=== PATIENT | male | born 1970 | race Caucasian/White ===

== ENCOUNTER 2016-10-11 04:21 | Emergency (ER) | payer MEDICARE, MEDICAID ==
[~2016-10-11 04:21] MED LIST: /QUIN20TA; ABIL15TA PO; BUDE150T; DEPA500T2 OR; DEPA500T2 PO; TRAZ50TA2 PO; ZOLO50TA PO
--- NOTE | 2016-10-11 05:00 | REPUSA ---
CLINICAL HISTORY: Head trauma. TECHNIQUE: Multiple axial brain CT scan sections were obtained from base to vertex without contrast a dministration. COMMENTS: There is no evidence of skull fracture. The study shows normal configuration of sella turcica. There are no intra or extra-axial collections. There is no mass effect or midline shift. There is no evidence of hematoma formation. No hydrocephal us is present. No abnormal calcifications are noted. No significant abnormalities are seen either in the posterior fossa or supratentorial compartment. Mild chronic mucosal inflammatory changes of the ethmoid air cells. The remaining sinuses and mastoid air cells are patent. IMPRESSION: No evidence of acute intracranial pathology. No intracranial hemorrhage or skull fracture. Chronic ethmoid sinusitis. Thank you for your kind referral of this patient.
[2016-10-11] MEDS ORDERED: MECLIZINE 12.5 MG TAB As Ordered ONE (05:05)
--- NOTE | 2016-10-11 05:25 | EDDOCDS ---
Nurse's Notes [facility] Name: Carlitos Mosley Age: 45 yrs Sex: Male : 1970 Arrival Date: 10/11/2016 Time: 04:21 Bed 11 Private MD: Diagnosis: Labyrinthitis;Acute ethmoidal sinusitis, unspecified Presentation: 10/11 04:24 Presenting complaint: Patient states: a week and a half ago he slipped and fell on the nn1 ice and hit head on concrete. Reports he has been having dizzy spells since fall when getting out of bed. Adult Sepsis Screening: The patient does not have new or worsening altered mentation. Patient's respiratory rate is less than 22. Systolic blood pressure is greater than 100. Patient has a qSOFA score of 0- Negative Sepsis Screen. Suicide/Homicide risk assessment- the patient denies having any suicidal and/or homicidal ideations and does not present with any other emotional, behavioral or mental health complaints. Status: Patient is not a clinical services assistant or dependent. Transition of care: patient was not received from another setting of care. 04:24 Acuity: WAYNE Level 4 nn1 04:24 Method Of Arrival: Walkin/Carried/Asstd nn1 Triage Assessment: 04:28 General: Appears in no apparent distress, comfortable. General: Patient reports falling nn1 forward today on knees. States dizziness is worse when going from lying to sitting position. No headache at this time. . Pain: Location: right knee and left knee Pain currently is 7 out of 10 on a pain scale. HIV screening NA for this visit Offered previously. The patient is triaged at the bedside. See Assessment in Nurses Notes section of ED record. Neurological: Level of Consciousness is awake, alert, obeys commands. Respiratory: Airway is patent Respiratory effort is even, unlabored, Respiratory pattern is regular, symmetrical. Derm: Skin is diaphoretic, Skin is normal. Historical: - Allergies: SHELLFISH; Bees; - Home Meds: 1. Vitamin D Oral 50,000 unit - PMHx: Depression; - PSHx: HERNIA REPAIR; left knee surgery; Testicle torsion repair; - Social history: Smoking status: Patient states was never smoker of tobacco. No barriers to communication noted, The patient speaks fluent Yoruba, Speaks appropriately for age. - Family history: Not pertinent. - : The pt / caregiver states he / she is not on anticoagulants. Home medication list is obtained from the patient. - Exposure Risk Screening:: None identified. Screenin:51 Screening information is obtained from the patient. Fall risk: No risks identified. af2 Assistance ADL's: requires no assistance with activities of daily living. Abuse/DV Screen: The patient / caregiver reports he/she is: not in a situation that causes fear, pain or injury. Nutritional screening: No deficits noted. Advance Directives: Currently, there is no health care proxy. home support is adequate. Assessment: 04:52 General: Appears in no apparent distress, Behavior is cooperative. Neurological: Level af2 of Consciousness is awake, alert, obeys commands, Oriented to person, place, time, Reports dizziness. Respiratory: Airway is patent Respiratory effort is even, unlabored. Derm: Skin is normal. Vital Signs: 04:27 BP 159 / 100; Pulse 84; Resp 18; Temp 96.9(T); Pulse Ox 96% on R/A; Weight 125.19 kg; nn1 Height 5 ft. 11 in. (180.34 cm); Pain 6/10; 04:27 Body Mass Index 38.49 (125.19 kg, 180.34 cm) nn1 Vitals: 05:17 Log In Time: October 11, 2016 at 04:21. af2 ED Course: 04:22 Patient visited by Alexandria Phelps. gjb 04:22 Patient moved to Waiting gjb 04:25 Triage Initiated nn1 04:30 Lluvia ByrneRN is Primary Nurse. nn1 04:30 Patient moved to 11 nn1 04:38 Sherif Gong DO is Attending Physician. cs11 04:38 Patient visited by Sherif Gong DO. cs11 04:51 The patient / caregiver is instructed regarding the plan of care and ED course. Patient af2 has correct armband on for positive identification. Placed in gown. 04:51 No IV's were initiated during this patient's visit. No procedures done that require af2 assistance. 04:52 Patient visited by Lluvia Byrne RN. af2 05:07 CT Head Without Contrast Returned. EDMS Administered Medications: 05:16 Drug: Meclizine 50 mg [meclizine 12.5 mg tablet (4 tabs)] Route: PO; af2 Order Results: Radiology Order: CT Head Without Contrast Test: CT Head Without Contrast REASON FOR EXAMINATION: Trauma; ; CLINICAL HISTORY: Head trauma.; TECHNIQUE: Multiple axial brain CT scan sections were obtained from base to vertex without contrast a; dministration.; COMMENTS:; There is no evidence of skull fracture.; The study shows normal configuration of sella turcica. There are no intra or extra-axial collections.; There is no mass effect or midline shift. There is no evidence of hematoma formation. No hydrocephal; us is present. No abnormal calcifications are noted.; No significant abnormalities are seen either in the posterior fossa or supratentorial compartment.; Mild chronic mucosal inflammatory changes of the ethmoid air cells.; The remaining sinuses and mastoid air cells are patent.; IMPRESSION:; No evidence of acute intracranial pathology. No intracranial hemorrhage or skull fracture.; Chronic ethmoid sinusitis.; Thank you for your kind referral of this patient.; ; Outcome: 05:08 Discharge ordered by Provider. cs11 05:16 Discharge Assessment: Patient awake, alert and oriented x 3. No cognitive and/or af2 functional deficits noted. Patient verbalized understanding of disposition instructions. patient administered narcotics - no. The following High Risk Discharge criteria are identified: None. Discharged to home ambulatory. Condition: stable. Discharge instructions given to patient, Instructed on discharge instructions, follow up and referral plans. Demonstrated understanding of instructions, Pt was receptive of discharge instructions/ teaching. CT Study completed. Property :Personal belongings accompany Pt. 05:24 Patient left the ED. af2 Signatures: Dispatcher [employer] EDMS Sherif Gong DO DO cs11 Lluvia Byrne,RN RN af2 Blanca GradyRN RN nn1 Alexandria Phelps JONI
--- NOTE | 2016-10-11 05:25 | EDDOCDS ---
Physician Documentation [facility] Name: Carlitos Mosley Age: 45 yrs Sex: Male : 1970 Arrival Date: 10/11/2016 Time: 04:21 Bed 11 Private MD: Disposition: 10/11/16 05:08 Discharged to Home/Self Care. Impression: Labyrinthitis, Acute ethmoidal sinusitis, unspecified. - Condition is Stable. - Prescriptions for Meclizine 25 mg Oral Tablet - take 1 tablet by ORAL route every 8 hours As needed; 30 tablet. Prednisone 20 mg Oral Tablet - take 2 tablet by ORAL route once daily for 5 days; 10 tablet. - Medication Reconciliation, Local Pharmacy Hours form. - Follow up: Private Physician; When: Call to arrange an appointment; Reason: Recheck today's complaints. - Problem is new. - Symptoms have improved. Historical: - Allergies: SHELLFISH; Bees; - Home Meds: 1. Vitamin D Oral 50,000 unit - PMHx: Depression; - PSHx: HERNIA REPAIR; left knee surgery; Testicle torsion repair; - Social history: Smoking status: Patient states was never smoker of tobacco. No barriers to communication noted, The patient speaks fluent [place], Speaks appropriately for age. - Family history: Not pertinent. - : The pt / caregiver states he / she is not on anticoagulants. Home medication list is obtained from the patient. - Exposure Risk Screening:: None identified. Vital Signs: 10/11 04:27 BP 159 / 100; Pulse 84; Resp 18; Temp 96.9(T); Pulse Ox 96% on R/A; Weight 125.19 kg / nn1 276 lbs; Height 5 ft. 11 in. (180.34 cm); Pain 6/10; 04:27 Body Mass Index 38.49 (125.19 kg, 180.34 cm) nn1 MDM: 04:42 CT Head Without Contrast Ordered. EDMS 04:49 Meclizine 50 mg PO once ordered. 11 05:07 Financial registration complete. [facility] Administered Medications: 05:16 Drug: Meclizine 50 mg [meclizine 12.5 mg tablet (4 tabs)] Route: PO; af2 Signatures: Dispatcher [employer] EDSherif Bah DO DO cs11 HookTeresita Amber,RN RN af2 Blanca Grady,RN RN nn1 MTDD
--- NOTE | 2016-10-13 06:25 | EDDOCDS ---
Physician Documentation [facility] Name: Carlitos Mosley Age: 45 yrs Sex: Male : 1970 Arrival Date: 10/11/2016 Time: 04:21 Bed 11 Private MD: Disposition: 10/11/16 05:08 Discharged to Home/Self Care. Impression: Labyrinthitis, Acute ethmoidal sinusitis, unspecified. - Condition is Stable. - Prescriptions for Meclizine 25 mg Oral Tablet - take 1 tablet by ORAL route every 8 hours As needed; 30 tablet. Prednisone 20 mg Oral Tablet - take 2 tablet by ORAL route once daily for 5 days; 10 tablet. - Medication Reconciliation, Local Pharmacy Hours form. - Follow up: Private Physician; When: Call to arrange an appointment; Reason: Recheck today's complaints. - Problem is new. - Symptoms have improved. Historical: - Allergies: SHELLFISH; Bees; - Home Meds: 1. Vitamin D Oral 50,000 unit - PMHx: Depression; - PSHx: HERNIA REPAIR; left knee surgery; Testicle torsion repair; - Social history: Smoking status: Patient states was never smoker of tobacco. No barriers to communication noted, The patient speaks fluent Grenadian, Speaks appropriately for age. - Family history: Not pertinent. - : The pt / caregiver states he / she is not on anticoagulants. Home medication list is obtained from the patient. - Exposure Risk Screening:: None identified. Vital Signs: 10/11 04:27 BP 159 / 100; Pulse 84; Resp 18; Temp 96.9(T); Pulse Ox 96% on R/A; Weight 125.19 kg / nn1 276 lbs; Height 5 ft. 11 in. (180.34 cm); Pain 6/10; 04:27 Body Mass Index 38.49 (125.19 kg, 180.34 cm) nn1 MDM: 04:42 CT Head Without Contrast Ordered. EDMS 04:49 Meclizine 50 mg PO once ordered. 11 05:07 Financial registration complete. [facility] 05:25 [facility] Payment Agreement was scanned into [employer] and attached to record. [facility] 10/12 08:58 T-Sheet-- Draft Copy was scanned into [employer] and attached to record. gb Administered Medications: 10/11 05:16 Drug: Meclizine 50 mg [meclizine 12.5 mg tablet (4 tabs)] Route: PO; af2 Signatures: Dispatcher [employer] EDJu Barron, Reg Reg gb Sherif Gong, DO cs11 Teresita Yung [facility] Lluvia ByrneRN RN af2 Blanca Grady RN RN nn1 The chart was reviewed and I authenticate all verbal orders and agree with the evaluation and treatment provided.Attachments: 05:25 [facility] Payment Agreement [facility] 10/12 08:58 T-Sheet-- Draft Copy gb Chart Complete MTDD
--- NOTE | 2016-10-13 06:25 | EDDOCDS ---
Physician Documentation [facility] Name: Carlitos Mosley Age: 45 yrs Sex: Male : 1970 Arrival Date: 10/11/2016 Time: 04:21 Bed 11 Private MD: Disposition: 10/11/16 05:08 Discharged to Home/Self Care. Impression: Labyrinthitis, Acute ethmoidal sinusitis, unspecified. - Condition is Stable. - Prescriptions for Meclizine 25 mg Oral Tablet - take 1 tablet by ORAL route every 8 hours As needed; 30 tablet. Prednisone 20 mg Oral Tablet - take 2 tablet by ORAL route once daily for 5 days; 10 tablet. - Medication Reconciliation, Local Pharmacy Hours form. - Follow up: Private Physician; When: Call to arrange an appointment; Reason: Recheck today's complaints. - Problem is new. - Symptoms have improved. Historical: - Allergies: SHELLFISH; Bees; - Home Meds: 1. Vitamin D Oral 50,000 unit - PMHx: Depression; - PSHx: HERNIA REPAIR; left knee surgery; Testicle torsion repair; - Social history: Smoking status: Patient states was never smoker of tobacco. No barriers to communication noted, The patient speaks fluent Canadian, Speaks appropriately for age. - Family history: Not pertinent. - : The pt / caregiver states he / she is not on anticoagulants. Home medication list is obtained from the patient. - Exposure Risk Screening:: None identified. Vital Signs: 10/11 04:27 BP 159 / 100; Pulse 84; Resp 18; Temp 96.9(T); Pulse Ox 96% on R/A; Weight 125.19 kg / nn1 276 lbs; Height 5 ft. 11 in. (180.34 cm); Pain 6/10; 04:27 Body Mass Index 38.49 (125.19 kg, 180.34 cm) nn1 MDM: 04:42 CT Head Without Contrast Ordered. EDMS 04:49 Meclizine 50 mg PO once ordered. 11 05:07 Financial registration complete. [facility] 05:25 [facility] Payment Agreement was scanned into [employer] and attached to record. [facility] 10/12 08:58 T-Sheet-- Draft Copy was scanned into [employer] and attached to record. gb Administered Medications: 10/11 05:16 Drug: Meclizine 50 mg [meclizine 12.5 mg tablet (4 tabs)] Route: PO; af2 Signatures: Dispatcher [employer] EDJu Barron, Reg Reg gb Sherif Gong, DO cs11 Teresita Yung [facility] Lluvia ByrneRN RN af2 Blanca Grady RN RN nn1 The chart was reviewed and I authenticate all verbal orders and agree with the evaluation and treatment provided.Attachments: 05:25 [facility] Payment Agreement [facility] 10/12 08:58 T-Sheet-- Draft Copy gb Chart Complete MTDD
--- NOTE | 2016-10-13 06:26 | EDDOCDS ---
Nurse's Notes [facility] Name: Carlitos Mosley Age: 45 yrs Sex: Male : 1970 Arrival Date: 10/11/2016 Time: 04:21 Bed 11 Private MD: Diagnosis: Labyrinthitis;Acute ethmoidal sinusitis, unspecified Presentation: 10/11 04:24 Presenting complaint: Patient states: a week and a half ago he slipped and fell on the nn1 ice and hit head on concrete. Reports he has been having dizzy spells since fall when getting out of bed. Adult Sepsis Screening: The patient does not have new or worsening altered mentation. Patient's respiratory rate is less than 22. Systolic blood pressure is greater than 100. Patient has a qSOFA score of 0- Negative Sepsis Screen. Suicide/Homicide risk assessment- the patient denies having any suicidal and/or homicidal ideations and does not present with any other emotional, behavioral or mental health complaints. Status: Patient is not a service loss control consultant or dependent. Transition of care: patient was not received from another setting of care. 04:24 Acuity: WAYNE Level 4 nn1 04:24 Method Of Arrival: Walkin/Carried/Asstd nn1 Triage Assessment: 04:28 General: Appears in no apparent distress, comfortable. General: Patient reports falling nn1 forward today on knees. States dizziness is worse when going from lying to sitting position. No headache at this time. . Pain: Location: right knee and left knee Pain currently is 7 out of 10 on a pain scale. HIV screening NA for this visit Offered previously. The patient is triaged at the bedside. See Assessment in Nurses Notes section of ED record. Neurological: Level of Consciousness is awake, alert, obeys commands. Respiratory: Airway is patent Respiratory effort is even, unlabored, Respiratory pattern is regular, symmetrical. Derm: Skin is diaphoretic, Skin is normal. Historical: - Allergies: SHELLFISH; Bees; - Home Meds: 1. Vitamin D Oral 50,000 unit - PMHx: Depression; - PSHx: HERNIA REPAIR; left knee surgery; Testicle torsion repair; - Social history: Smoking status: Patient states was never smoker of tobacco. No barriers to communication noted, The patient speaks fluent Czech, Speaks appropriately for age. - Family history: Not pertinent. - : The pt / caregiver states he / she is not on anticoagulants. Home medication list is obtained from the patient. - Exposure Risk Screening:: None identified. Screenin:51 Screening information is obtained from the patient. Fall risk: No risks identified. af2 Assistance ADL's: requires no assistance with activities of daily living. Abuse/DV Screen: The patient / caregiver reports he/she is: not in a situation that causes fear, pain or injury. Nutritional screening: No deficits noted. Advance Directives: Currently, there is no health care proxy. home support is adequate. Assessment: 04:52 General: Appears in no apparent distress, Behavior is cooperative. Neurological: Level af2 of Consciousness is awake, alert, obeys commands, Oriented to person, place, time, Reports dizziness. Respiratory: Airway is patent Respiratory effort is even, unlabored. Derm: Skin is normal. Vital Signs: 04:27 BP 159 / 100; Pulse 84; Resp 18; Temp 96.9(T); Pulse Ox 96% on R/A; Weight 125.19 kg; nn1 Height 5 ft. 11 in. (180.34 cm); Pain 6/10; 04:27 Body Mass Index 38.49 (125.19 kg, 180.34 cm) nn1 Vitals: 05:17 Log In Time: October 11, 2016 at 04:21. af2 ED Course: 04:22 Patient visited by Alexandria Phelps. gjb 04:22 Patient moved to Waiting gjb 04:25 Triage Initiated nn1 04:30 Lluvia ByrneRN is Primary Nurse. nn1 04:30 Patient moved to 11 nn1 04:38 Sherif Gong DO is Attending Physician. cs11 04:38 Patient visited by Sherif Gong DO. cs11 04:51 The patient / caregiver is instructed regarding the plan of care and ED course. Patient af2 has correct armband on for positive identification. Placed in gown. 04:51 No IV's were initiated during this patient's visit. No procedures done that require af2 assistance. 04:52 Patient visited by Lluvia Byrne RN. af2 05:07 CT Head Without Contrast Returned. EDMS 05:25 [facility] Payment Agreement was scanned into [employer] and attached to record. [facility] 10/12 08:58 T-Sheet-- Draft Copy was scanned into [employer] and attached to record. gb Administered Medications: 10/11 05:16 Drug: Meclizine 50 mg [meclizine 12.5 mg tablet (4 tabs)] Route: PO; af2 Order Results: Radiology Order: CT Head Without Contrast Test: CT Head Without Contrast REASON FOR EXAMINATION: Trauma; ; CLINICAL HISTORY: Head trauma.; TECHNIQUE: Multiple axial brain CT scan sections were obtained from base to vertex without contrast a; dministration.; COMMENTS:; There is no evidence of skull fracture.; The study shows normal configuration of sella turcica. There are no intra or extra-axial collections.; There is no mass effect or midline shift. There is no evidence of hematoma formation. No hydrocephal; us is present. No abnormal calcifications are noted.; No significant abnormalities are seen either in the posterior fossa or supratentorial compartment.; Mild chronic mucosal inflammatory changes of the ethmoid air cells.; The remaining sinuses and mastoid air cells are patent.; IMPRESSION:; No evidence of acute intracranial pathology. No intracranial hemorrhage or skull fracture.; Chronic ethmoid sinusitis.; Thank you for your kind referral of this patient.; ; Outcome: 05:08 Discharge ordered by Provider. cs11 05:16 Discharge Assessment: Patient awake, alert and oriented x 3. No cognitive and/or af2 functional deficits noted. Patient verbalized understanding of disposition instructions. patient administered narcotics - no. The following High Risk Discharge criteria are identified: None. Discharged to home ambulatory. Condition: stable. Discharge instructions given to patient, Instructed on discharge instructions, follow up and referral plans. Demonstrated understanding of instructions, Pt was receptive of discharge instructions/ teaching. CT Study completed. Property :Personal belongings accompany Pt. 05:24 Patient left the ED. af2 Signatures: Dispatcher [employer] EDMS Ju Ghosh, Sherif Gutierrez DO DO cs11 Teresita Yung AmberRN RN af2 Blanca Grady RN RN nn1 Alexandria Phelps Chart Complete MTDD
== END 2016-10-11 05:24 | disposition home or self-care (01) ==
LOC: M ED 04:21
DX: H83.09 Labyrinthitis, unspecified ear (principal); J01.90 Acute sinusitis, unspecified; F32.9 Major depressive disorder, single episode, unspecified; Z79.899 Other long term (current) drug therapy; Z91.013 Allergy to seafood; Z91.030 Bee allergy status

== ENCOUNTER 2017-03-21 22:43 | Emergency (ER) | payer MEDICARE, MEDICAID ==
[~2017-03-21] VITALS: Ht 177.8 cm; Wt 124.9 kg
[2017-03-22] MEDS ORDERED: ERYTOIN8 OD (03:40)
[2017-03-22] MEDS ORDERED: ERYTHROMYCIN OPHTH OINT OD ONE (03:45)
[2017-03-22 03:52] VITALS: BP 142/68
== END 2017-03-22 03:53 | disposition home or self-care (01) ==
LOC: M ED 03-22 00:15
DX: H10.31 Unspecified acute conjunctivitis, right eye (principal); Z91.013 Allergy to seafood; Z91.030 Bee allergy status

== ENCOUNTER 2018-01-01 02:06 | Emergency (ER) | payer MEDICARE, OTHER, MEDICAID | END 2018-01-01 03:06 | disposition home or self-care (01) | LOC: M ED 02:06 | DX: S00.411A Abrasion of right ear, initial encounter (principal); X58.XXXA Exposure to other specified factors, initial encounter; Y92.89 Other specified places as the place of occurrence of the external cause; Y93.E8 Activity, other personal hygiene; E11.9 Type 2 diabetes mellitus without complications | CPT/HCPCS: 99282 ==

== ENCOUNTER 2018-04-22 04:52 | Emergency (ER) | payer MEDICARE, MEDICAID, OTHER ==
[2018-04-22] MEDS: diphenhydrAMINE 50 MG CAP PO (07:04)
== END 2018-04-22 07:33 | disposition home or self-care (01) ==
LOC: M ED 04:52
DX: S00.461A Insect bite (nonvenomous) of right ear, initial encounter (principal); W57.XXXA Bitten or stung by nonvenomous insect and other nonvenomous arthropods, initial encounter; Y92.59 Other trade areas as the place of occurrence of the external cause; Y93.55 Activity, bike riding; Z91.038 Other insect allergy status; I10 Essential (primary) hypertension; E03.9 Hypothyroidism, unspecified; Q89.3 Situs inversus; Z91.013 Allergy to seafood; Z91.030 Bee allergy status; Z87.891 Personal history of nicotine dependence
CPT/HCPCS: 99283

== ENCOUNTER → 2019-05-05 | Outpatient (REF) | payer MEDICARE, MEDICAID ==
[~2019-05-05] MED LIST changes: -/QUIN20TA; +ACCU1TAB2; +ERYTOIN8 OD; +HYDR25OIN TOP; +TOBR3OI
[2019-05-05 12:01] LABS: BASO % 0.6 % (0.0-1.0); EOS # 0.1 10^3/uL (0.0-0.50); EOS % 1.9 % (0.0-3.0); HEMOGLOBIN 14.3 g/dl (13.5-17.5); LYMPH % 37.8 % (24.0-44.0); MEAN CORPUSCULAR HEMOGLOBIN 33.2 pg (27.0-33.0); MEAN CORPUSCULAR HGB CONC 34.9 g/dl (32.0-36.5); MEAN CORPUSCULAR VOLUME 95.1 fl (80.0-96.0); MONO # 0.5 10^3/uL (0.0-0.8); MONO % 9.3 % (0.0-5.0); NEUTROPHILS # 2.7 10^3/uL (1.8-7.7); NEUTROPHILS % 50.2 % (36.0-66.0); PLATELET COUNT, AUTOMATED 219 10^3/uL (150-450); RED BLOOD COUNT 4.31 10^6/uL (4.30-6.10); WHITE BLOOD COUNT 5.4 10^3/uL (4.0-10.0)
[2019-05-05 12:20] LABS: HEMOGLOBIN A1c 7.2 %
[2019-05-05 12:40] LABS: ALBUMIN 3.7 GM/DL (3.2-5.2); ALT/SGPT 29 U/L (12-78); BILIRUBIN,TOTAL 0.6 MG/DL (0.2-1.0); BLOOD UREA NITROGEN 19 MG/DL (7-18); CARBON DIOXIDE LEVEL 26 MEQ/L (21-32); CHLORIDE LEVEL 106 MEQ/L (98-107); CHOLESTEROL LEVEL 163 MG/DL (<200); CREATININE FOR GFR 0.92 MG/DL (0.70-1.30); FREE T4 0.96 NG/DL (0.76-1.46); GLOMERULAR FILTRATION RATE > 60.0 (>56); GLUCOSE, FASTING 124 MG/DL (70-100); HDL CHOLESTEROL 43 MG/DL (>40); LDL CHOLESTEROL 107 MG/DL (<100); NON-HDL-C 120 MG/DL; POTASSIUM SERUM 3.8 MEQ/L (3.5-5.1); SODIUM LEVEL 140 MEQ/L (136-145); TOTAL PROTEIN 7.1 GM/DL (6.4-8.2); TRIGLYCERIDES LEVEL 64 MG/DL (<150)
[2019-05-07 00:06] LABS: Lyme Disease IgG/IgM Antibodie <0.91 ISR (0.00-0.90); Lyme Disease IgM Ab Quantitati <0.80 index (0.00-0.79)
== END ==
LOC: M LAB REF 11:10
PROVIDERS: ATTEND Family Medicine
DX: Z13.228 Encounter for screening for other metabolic disorders (principal); Z12.5 Encounter for screening for malignant neoplasm of prostate; E07.9 Disorder of thyroid, unspecified; E78.00 Pure hypercholesterolemia, unspecified
CPT/HCPCS: 80053; 80061; 82306; 83036; 84439; 84443; 85025; 86617; G0103

== ENCOUNTER → 2019-07-19 | Day surgery (SDC) | payer MEDICARE, MEDICAID ==
[~2019-07-19] VITALS: Ht 180.3 cm; Wt 109.3 kg
[~2019-07-19] MED LIST changes: +ACET-840 PO; +ASPI-264 PO; +CHOL100029 PO; +CYAN500T8 PO; +LIDOCAINE 2% INJ 100 MG/5 ML SDV (FOR ANES.) As Ordered ONE; +MELA2.5C2 PO; +MULTCAP PO; +NS 1,000 ML IV ONE; +OMEG1CAP16 PO; +PROPOFOL 200 MG/20 ML VIAL As Ordered ONE; +QC F0.52 PO; +TRAZ-252 PO; +VITA500T PO; +[UNRECOGNIZED DRUG - OTHER] PO
[2019-07-19 08:18] VITALS: BP 155/88
== END | disposition home or self-care (01) ==
LOC: M OPP 07:16
PROVIDERS: ATTEND Internal Medicine Gastroenterology
DX: Z12.11 Encounter for screening for malignant neoplasm of colon (principal); Z53.09 Procedure and treatment not carried out because of other contraindication

== ENCOUNTER → 2019-08-03 | Outpatient (REF) | payer MEDICARE, MEDICAID ==
[~2019-08-03] MED LIST changes: -LIDOCAINE 2% INJ 100 MG/5 ML SDV (FOR ANES.) As Ordered ONE; -NS 1,000 ML IV ONE; -PROPOFOL 200 MG/20 ML VIAL As Ordered ONE
[2019-08-03 14:13] LABS: ALBUMIN 3.3 GM/DL (3.2-5.2); ALT/SGPT 30 U/L (12-78); BILIRUBIN,TOTAL 0.3 MG/DL (0.2-1.0); BLOOD UREA NITROGEN 18 MG/DL (7-18); CALCIUM LEVEL 8.5 MG/DL (8.5-10.1); CARBON DIOXIDE LEVEL 29 MEQ/L (21-32); CHLORIDE LEVEL 108 MEQ/L (98-107); CHOLESTEROL LEVEL 99 MG/DL (<200); CHOLESTEROL RISK RATIO 2.605 (<5); CREATININE FOR GFR 0.91 MG/DL (0.70-1.30); GLOMERULAR FILTRATION RATE > 60.0 (>56); GLUCOSE, FASTING 157 MG/DL (70-100); HDL CHOLESTEROL 38 MG/DL (>40); LDL CHOLESTEROL 42 MG/DL (<100); NON-HDL-C 61 MG/DL; SODIUM LEVEL 143 MEQ/L (136-145); TOTAL PROTEIN 6.6 GM/DL (6.4-8.2); TRIGLYCERIDES LEVEL 94 MG/DL (<150)
[2019-08-03 15:30] LABS: HEMOGLOBIN A1c 5.6 %
== END ==
LOC: M LAB REF 12:34
PROVIDERS: ATTEND Family Medicine
DX: E11.9 Type 2 diabetes mellitus without complications (principal); Z79.899 Other long term (current) drug therapy

== ENCOUNTER 2019-10-12 07:50 | Day surgery (SDC) | payer MEDICARE, MEDICAID ==
[~2019-10-12] VITALS: Ht 177.8 cm; Wt 111.6 kg
[~2019-10-12 07:50] MED LIST changes: +QUIN1TAB PO; +TRUL10IN SC
[2019-10-12] MEDS ORDERED: LIDOCAINE 2% INJ 100 MG/5 ML SDV (FOR ANES.) As Ordered ONE (08:09)
[2019-10-12] MEDS ORDERED: PROPOFOL 200 MG/20 ML VIAL As Ordered ONE ×2 (08:09→09:41)
[2019-10-12] MEDS ORDERED: NS 1,000 ML IV ONE (09:00)
[2019-10-12 10:18] VITALS: BP 150/95
--- NOTE | 2019-10-12 10:26 | ROOR ---
Patient Name: Carlitos Mosley Procedure Date: 10/12/2019 9:17 AM Date of : 1970 Age: 48 Room: [facility] Gender: Male Note Status: Finalized Procedure: Colonoscopy Indications: Screening for colorectal malignant neoplasm Providers: Zenon Figueroa MD Referring MD: Jaskaran VAUGHN MD Requesting Provider: Medicines: Monitored Anesthesia Care Complications: No immediate complications. Procedure: Pre-Anesthesia Assessment: - Prior to the procedure, a History and Physical was performed, and patient medications and allergies were reviewed. The patient is competent. The risks and benefits of the procedure and the sedation options and risks were discussed with the patient. All questions were answered and informed consent was obtained. Patient identification and proposed procedure were verified by the physician, the nurse and the anesthesiologist in the procedure room. Mental Status Examination: alert and oriented. Airway Examination: normal oropharyngeal airway and neck mobility. Respiratory Examination: clear to auscultation. CV Examination: normal. Prophylactic Antibiotics: The patient does not require prophylactic antibiotics. Prior Anticoagulants: The patient has taken no previous anticoagulant or antiplatelet agents. ASA Grade Assessment: II - A patient with mild systemic disease. After reviewing the risks and benefits, the patient was deemed in satisfactory condition to undergo the procedure. The anesthesia plan was to use monitored anesthesia care (MAC). Immediately prior to administration of medications, the patient was re-assessed for adequacy to receive sedatives. The heart rate, respiratory rate, oxygen saturations, blood pressure, adequacy of pulmonary ventilation, and response to care were monitored throughout the procedure. The physical status of the patient was re-assessed after the procedure. The Colonoscope was introduced through the anus and advanced to the terminal ileum, with identification of the appendiceal orifice and IC valve. The colonoscopy was performed without difficulty. The patient tolerated the procedure well. The quality of the bowel preparation was good. The terminal ileum, ileocecal valve, appendiceal orifice, and rectum were photographed. Scope insertion time was 3 minutes. Scope withdrawal time was 9 minutes. The total duration of the procedure was 12 minutes. Findings: The perianal and digital rectal examinations were normal. The terminal ileum appeared normal. Many medium-mouthed diverticula were found from sigmoid to descending colon. There was no evidence of diverticular bleeding. Non-bleeding external and internal hemorrhoids were found during retroflexion. The hemorrhoids were small. The exam was otherwise without abnormality on direct and retroflexion views. Impression: - The examined portion of the ileum was normal. - Moderate diverticulosis from sigmoid to descending colon. There was no evidence of diverticular bleeding. - Non-bleeding external and internal hemorrhoids. - The examination was otherwise normal on direct and retroflexion views. - No specimens collected. Recommendation: - Patient has a contact number available for emergencies. The signs and symptoms of potential delayed complications were discussed with the patient. Return to normal activities tomorrow. Written discharge instructions were provided to the patient. - High fiber diet. - Use fiber, for example Citrucel, Fibercon, Konsyl or Metamucil. - Repeat colonoscopy in 10 years for screening purposes. - Return to GI clinic in 10 years. - Return to primary care physician. Zenon Figueroa MD Zenon Figueroa MD 10/12/2019 10:25:49 AM Electronically signed by Zenon Figueroa MD Number of Addenda: 0 Note Initiated On: 10/12/2019 9:17 AM Estimated Blood Loss: Estimated blood loss was minimal.
== END 2019-10-12 10:19 | disposition home or self-care (01) ==
LOC: M OPP 07:50
PROVIDERS: ATTEND Internal Medicine Gastroenterology
DX: Z12.11 Encounter for screening for malignant neoplasm of colon (principal); K57.30 Diverticulosis of large intestine without perforation or abscess without bleeding; Z79.82 Long term (current) use of aspirin; Z79.899 Other long term (current) drug therapy; Z91.030 Bee allergy status; Z91.013 Allergy to seafood

== ENCOUNTER → 2019-11-01 | Outpatient (REF) | payer MEDICARE, MEDICAID ==
[2019-11-01 13:51] LABS: ALBUMIN 3.7 GM/DL (3.2-5.2); ALT/SGPT 34 U/L (12-78); BILIRUBIN,TOTAL 0.4 MG/DL (0.2-1.0); BLOOD UREA NITROGEN 11 MG/DL (7-18); CALCIUM LEVEL 8.8 MG/DL (8.5-10.1); CARBON DIOXIDE LEVEL 28 MEQ/L (21-32); CHLORIDE LEVEL 106 MEQ/L (98-107); CHOLESTEROL LEVEL 134 MG/DL (<200); CREATININE FOR GFR 0.84 MG/DL (0.70-1.30); GLOMERULAR FILTRATION RATE > 60.0 (>56); GLUCOSE, FASTING 96 MG/DL (70-100); HDL CHOLESTEROL 33 MG/DL (>40); LDL CHOLESTEROL 31 MG/DL (<100); NON-HDL-C 101 MG/DL; POTASSIUM SERUM 4.2 MEQ/L (3.5-5.1); SODIUM LEVEL 138 MEQ/L (136-145); TOTAL PROTEIN 6.9 GM/DL (6.4-8.2); TRIGLYCERIDES LEVEL 348 MG/DL (<150)
[2019-11-01 13:58] LABS: HEMOGLOBIN A1c 5.6 %
== END ==
LOC: M LAB REF 12:56
PROVIDERS: ATTEND Family Medicine
DX: E11.9 Type 2 diabetes mellitus without complications (principal)

== ENCOUNTER 2019-12-01 05:35 | Emergency (ER) | payer MEDICARE, MEDICAID ==
[2019-12-01] MEDS ORDERED: ASPI81CH33 PO (05:40)
[2019-12-01] MEDS ORDERED: LISI10TA4 PO (05:40)
--- NOTE | 2019-12-01 06:43 | REPVR ---
PROCEDURE INFORMATION: Exam: CT Head Without Contrast Exam date and time: 12/01/2019 6:25 AM Age: 49 years old Clinical indication: Dizziness; Additional info: Dizziness, vertigo TECHNIQUE: Imaging protocol: Computed tomography of the head without contrast. Radiation optimization: All CT scans at this facility use at least one of these dose optimization techniques: automated exposure control; mA and/or kV adjustment per patient size (includes targeted exams where dose is matched to clinical indication); or iterative reconstruction. COMPARISON: CT Head without contrast 10/11/2016 4:46 AM FINDINGS: Brain: The cortical/white matter interfaces are preserved throughout the brain. There is no evidence of intracranial hemorrhage. Ventricles: The ventricular system is normal in size and configuration. Bones/joints: No acute fractures of the skull are identified. Sinuses: The visualized paranasal sinuses are clear. Mastoid air cells: The mastoid air cells are clear. Soft tissues: The soft tissues appear unremarkable. IMPRESSION: Normal appearance of the brain. Electronically signed by: Genie Wills On 12/01/2019 06:43:29 AM
[2019-12-01] MEDS ORDERED: MECLIZINE 25 MG TABLET PO ONE (06:45)
[2019-12-01 08:00] VITALS: BP 156/79
[2019-12-01] MEDS ORDERED: MECL1TAB31 PO (08:02)
== END 2019-12-01 08:15 | disposition home or self-care (01) ==
LOC: M ED 05:35
DX: H81.10 Benign paroxysmal vertigo, unspecified ear (principal); G44.209 Tension-type headache, unspecified, not intractable; I10 Essential (primary) hypertension; G47.30 Sleep apnea, unspecified; Q89.3 Situs inversus; E11.9 Type 2 diabetes mellitus without complications; F33.2 Major depressive disorder, recurrent severe without psychotic features; Z91.5 Personal history of self-harm; K92.9 Disease of digestive system, unspecified; M79.9 Soft tissue disorder, unspecified; Z79.899 Other long term (current) drug therapy; Z79.84 Long term (current) use of oral hypoglycemic drugs; Z79.82 Long term (current) use of aspirin

== ENCOUNTER → 2020-02-09 | Outpatient (REF) | payer MEDICARE, MEDICAID ==
[~2020-02-09] MED LIST changes: +ASPI81CH33 PO; +LISI10TA4 PO; +MECL1TAB31 PO; +VITA-243 PO; -VITA500T PO
[2020-02-09 12:50] LABS: ALBUMIN 3.6 GM/DL (3.2-5.2); ALT/SGPT 34 U/L (12-78); BILIRUBIN,TOTAL 0.3 MG/DL (0.2-1.0); BLOOD UREA NITROGEN 23 MG/DL (7-18); CALCIUM LEVEL 8.6 MG/DL (8.5-10.1); CARBON DIOXIDE LEVEL 26 MEQ/L (21-32); CHLORIDE LEVEL 109 MEQ/L (98-107); CHOLESTEROL LEVEL 141 MG/DL (<200); CHOLESTEROL RISK RATIO 3.279 (<5); CREATININE FOR GFR 0.82 MG/DL (0.70-1.30); GLOMERULAR FILTRATION RATE > 60.0 (>56); GLUCOSE, FASTING 130 MG/DL (70-100); HDL CHOLESTEROL 43 MG/DL (>40); LDL CHOLESTEROL 74 MG/DL (<100); NON-HDL-C 98 MG/DL; POTASSIUM SERUM 4.2 MEQ/L (3.5-5.1); SODIUM LEVEL 140 MEQ/L (136-145); TRIGLYCERIDES LEVEL 120 MG/DL (<150)
[2020-02-09 13:11] LABS: HEMOGLOBIN A1c 5.6 %
== END ==
LOC: M LAB REF 11:40
PROVIDERS: ATTEND Family Medicine Addiction Medicine
DX: E11.9 Type 2 diabetes mellitus without complications (principal)

== ENCOUNTER 2020-03-16 19:37 | Emergency (ER) | payer MEDICARE, MEDICAID ==
[~2020-03-16] VITALS: Ht 177.8 cm; Wt 112.1 kg
[2020-03-16 19:39] VITALS: BP 137/90
[2020-03-16] MEDS ORDERED: BACITRACIN OINTMENT 30GM TUBE TOP STA (20:12)
[2020-03-16] MEDS ORDERED: CEPHALEXIN 500 MG CAP PO ONE (20:15)
[2020-03-16] MEDS ORDERED: KEFL500C17 PO (20:19)
== END 2020-03-16 20:30 | disposition home or self-care (01) ==
LOC: M ED 19:37
DX: S80.862A Insect bite (nonvenomous), left lower leg, initial encounter (principal); W57.XXXA Bitten or stung by nonvenomous insect and other nonvenomous arthropods, initial encounter; Y92.89 Other specified places as the place of occurrence of the external cause; Z91.013 Allergy to seafood; Z91.030 Bee allergy status; I10 Essential (primary) hypertension; Q89.3 Situs inversus; E11.9 Type 2 diabetes mellitus without complications; F32.9 Major depressive disorder, single episode, unspecified; Z79.82 Long term (current) use of aspirin; Z79.899 Other long term (current) drug therapy; Z79.84 Long term (current) use of oral hypoglycemic drugs; Y99.8 Other external cause status

== ENCOUNTER → 2020-05-09 | Outpatient (REF) | payer MEDICARE, MEDICAID ==
[~2020-05-09] MED LIST changes: +KEFL500C17 PO
[2020-06-23 06:42] LABS: HEMOGLOBIN A1c 5.5 %
[2020-06-23 06:43] LABS: ALBUMIN 3.7 GM/DL (3.2-5.2); ALT/SGPT 32 U/L (12-78); BILIRUBIN,TOTAL 0.6 MG/DL (0.2-1.0); BLOOD UREA NITROGEN 20 MG/DL (7-18); CALCIUM LEVEL 8.3 MG/DL (8.5-10.1); CARBON DIOXIDE LEVEL 27 MEQ/L (21-32); CHLORIDE LEVEL 105 MEQ/L (98-107); CHOLESTEROL LEVEL 152 MG/DL (<200); CHOLESTEROL RISK RATIO 3.619 (<5); CREATININE FOR GFR 0.93 MG/DL (0.70-1.30); GLOMERULAR FILTRATION RATE > 60.0 (>56); GLUCOSE, FASTING 97 MG/DL (70-100); HDL CHOLESTEROL 42 MG/DL (>40); LDL CHOLESTEROL 95 MG/DL (<100); NON-HDL-C 110 MG/DL; POTASSIUM SERUM 3.8 MEQ/L (3.5-5.1); SODIUM LEVEL 136 MEQ/L (136-145); TOTAL PROTEIN 6.7 GM/DL (6.4-8.2); TRIGLYCERIDES LEVEL 77 MG/DL (<150)
== END ==
LOC: M LAB REF 10:59
PROVIDERS: ATTEND Family Medicine Addiction Medicine
DX: E11.9 Type 2 diabetes mellitus without complications (principal)

== ENCOUNTER → 2020-06-20 | Outpatient (REF) | payer MEDICARE, MEDICAID ==
[2020-06-20 14:04] LABS: HEMOGLOBIN A1c 5.4 %
[2020-06-20 14:15] LABS: ALBUMIN 3.9 GM/DL (3.2-5.2); ALT/SGPT 31 U/L (12-78); BILIRUBIN,TOTAL 0.8 MG/DL (0.2-1.0); BLOOD UREA NITROGEN 12 MG/DL (7-18); CALCIUM LEVEL 8.9 MG/DL (8.5-10.1); CARBON DIOXIDE LEVEL 28 MEQ/L (21-32); CHLORIDE LEVEL 104 MEQ/L (98-107); CHOLESTEROL LEVEL 169 MG/DL (<200); CREATININE FOR GFR 1.04 MG/DL (0.70-1.30); GLOMERULAR FILTRATION RATE > 60.0 (>56); GLUCOSE, FASTING 84 MG/DL (70-100); HDL CHOLESTEROL 48 MG/DL (>40); LDL CHOLESTEROL 110 MG/DL (<100); NON-HDL-C 121 MG/DL; POTASSIUM SERUM 4.2 MEQ/L (3.5-5.1); SODIUM LEVEL 135 MEQ/L (136-145); TOTAL PROTEIN 7.3 GM/DL (6.4-8.2); TRIGLYCERIDES LEVEL 53 MG/DL (<150)
== END ==
LOC: M LAB REF 12:40
PROVIDERS: ATTEND Family Medicine Addiction Medicine
DX: Z00.01 Encounter for general adult medical examination with abnormal findings (principal); E11.9 Type 2 diabetes mellitus without complications; I10 Essential (primary) hypertension

== ENCOUNTER → 2020-12-27 | Outpatient (REF) | payer MEDICARE, MEDICAID ==
[~2020-12-27] MED LIST changes: +CYAN500T14 PO; -CYAN500T8 PO; +LISI10TA22 PO; -LISI10TA4 PO
[2020-12-27 18:39] LABS: ALBUMIN 3.4 GM/DL (3.2-5.2); ALT/SGPT 30 U/L (12-78); BILIRUBIN,TOTAL 0.2 MG/DL (0.2-1.0); BLOOD UREA NITROGEN 14 MG/DL (7-18); CALCIUM LEVEL 8.5 MG/DL (8.5-10.1); CARBON DIOXIDE LEVEL 29 MEQ/L (21-32); CHLORIDE LEVEL 108 MEQ/L (98-107); CHOLESTEROL LEVEL 129 MG/DL (<200); CHOLESTEROL RISK RATIO 4.961 (<5); CREATININE FOR GFR 0.84 MG/DL (0.70-1.30); GLOMERULAR FILTRATION RATE > 60.0 (>56); GLUCOSE, FASTING 219 MG/DL (70-100); HDL CHOLESTEROL 26 MG/DL (>40); LDL CHOLESTEROL 43 MG/DL (<100); NON-HDL-C 103 MG/DL; POTASSIUM SERUM 4.3 MEQ/L (3.5-5.1); SODIUM LEVEL 140 MEQ/L (136-145); TOTAL PROTEIN 6.5 GM/DL (6.4-8.2); TRIGLYCERIDES LEVEL 301 MG/DL (<150)
[2020-12-27 18:46] LABS: TOTAL 25(OH) VITAMIN D 60.9 NG/ML (30.0-100.0)
== END ==
LOC: M LAB REF 16:30
PROVIDERS: ATTEND Family Medicine Addiction Medicine
DX: E55.9 Vitamin D deficiency, unspecified (principal); R73.9 Hyperglycemia, unspecified; I10 Essential (primary) hypertension

== ENCOUNTER 2021-08-10 04:17 | Emergency (ER) | payer MEDICARE, MEDICAID ==
[~2021-08-10] VITALS: Ht 177.8 cm; Wt 117.3 kg
[2021-08-10] MEDS ORDERED: LIPI20TA PO (04:31)
[2021-08-10 07:09] VITALS: BP 138/83
--- NOTE | 2021-08-10 09:10 | REP ---
INDICATION: cat bite to hand pain over 5th digit. COMPARISON: 02/09/2010, 11/04/2007. TECHNIQUE: Four views. FINDINGS: There is some soft tissue swelling over the dorsal aspect of the hand and predominantly over the 5th MCP joint and metacarpal. There is an old healed and remodeled fracture of the distal shaft and metaphysis of the 5th metacarpal. Bony exostosis along the volar aspect of that bone represents a sequela of the previous fracture and healing process. This appears grossly unchanged. I see no subcutaneous air, acute fracture, foreign body or other significant finding about the 5th digit and remainder of the hand. IMPRESSION: 1. Soft tissue swelling about the dorsal aspect of the 5th MCP joint and metacarpal. No subcutaneous air or foreign body. 2. Old healed and remodeled fracture 5th metacarpal metaphysis with some angulation of the fracture apex dorsally. This is unchanged from the previous study. There is a volar exostosis also unchanged and this sequela of that old fracture seen in 2007. 3. No other significant or acute finding. <Electronically signed by Chung Coombs > 08/10/21 [id number]
[2021-08-10] MEDS ORDERED: AUGMENTIN 875 MG TAB PO ONE (10:10)
[2021-08-10] MEDS ORDERED: AUGM875T28 PO (10:10)
[2021-08-10] MEDS ORDERED: BOOSTRIX/ADACEL VACCINE (DIPHTH/PERTUSS/ACELL/TETANUS) 0.5ML SYR IM ONE (10:10)
== END 2021-08-10 10:28 | disposition home or self-care (01) ==
LOC: M ED 04:17
DX: S60.572A Other superficial bite of hand of left hand, initial encounter (principal); W55.01XA Bitten by cat, initial encounter; Y92.098 Other place in other non-institutional residence as the place of occurrence of the external cause; Y93.89 Activity, other specified; Y99.8 Other external cause status; E11.9 Type 2 diabetes mellitus without complications; I10 Essential (primary) hypertension; E78.5 Hyperlipidemia, unspecified; Q89.3 Situs inversus; Z91.013 Allergy to seafood; Z91.030 Bee allergy status; Z79.899 Other long term (current) drug therapy; Z79.82 Long term (current) use of aspirin; Z79.84 Long term (current) use of oral hypoglycemic drugs

== ENCOUNTER 2022-05-17 10:33 | Emergency (ER) | payer MEDICARE, MEDICAID ==
[~2022-05-17] VITALS: Ht 177.8 cm; Wt 113.7 kg
[~2022-05-17 10:33] MED LIST changes: +AUGM875T28 PO; +LIPI20TA PO; +TOBR3.5O2; -TOBR3OI
[2022-05-17 10:34] VITALS: BP 180/98
== END 2022-05-17 15:08 | disposition left against medical advice (07) ==
LOC: M ED 10:33
DX: Z53.21 Procedure and treatment not carried out due to patient leaving prior to being seen by health care provider (principal)

== ENCOUNTER 2022-08-29 23:53 | Emergency (ER) | payer MEDICARE, MEDICAID ==
[~2022-08-29] VITALS: Ht 177.8 cm; Wt 113.6 kg
[2022-08-30] MEDS ORDERED: LIDOCAINE 2% MDV 20ML VIAL As Ordered ONE (02:35)
[2022-08-30] MEDS ORDERED: NEOSPORIN OINT 0.9 GM PKT TOP ONE (02:40)
[2022-08-30] MEDS ORDERED: LIDOCAINE 2% MDV 20ML VIAL SC ONE (02:40)
[2022-08-30] MEDS ORDERED: BOOSTRIX/ADACEL VACCINE (DIPHTH/PERTUSS/ACELL/TETANUS) 0.5ML SYR IM.IMMUN ONE (03:10)
[2022-08-30 03:32] VITALS: BP 140/67
== END 2022-08-30 03:39 | disposition home or self-care (01) ==
LOC: M ED 23:53
DX: S91.312A Laceration without foreign body, left foot, initial encounter (principal); W25.XXXA Contact with sharp glass, initial encounter; E11.9 Type 2 diabetes mellitus without complications; I10 Essential (primary) hypertension; Z79.899 Other long term (current) drug therapy; Z79.84 Long term (current) use of oral hypoglycemic drugs; Z79.82 Long term (current) use of aspirin; Z91.030 Bee allergy status; Z91.013 Allergy to seafood; Z23 Encounter for immunization

== ENCOUNTER → 2022-09-02 | Outpatient (REF) | payer MEDICARE, MEDICAID ==
[2022-09-02 13:22] LABS: CHLORIDE LEVEL 101 MMOL/L (98-107); POTASSIUM SERUM 4.1 MMOL/L (3.5-5.1); SODIUM LEVEL 138 MMOL/L (136-145)
[2022-09-02 13:23] LABS: ALBUMIN 3.9 G/DL (3.2-5.2); CARBON DIOXIDE LEVEL 26 MMOL/L (20-31)
[2022-09-02 13:28] LABS: BLOOD UREA NITROGEN 20 MG/DL (9-23); CALCIUM LEVEL 8.8 MG/DL (8.5-10.1); GLUCOSE, FASTING 102 MG/DL (60-100); TRIGLYCERIDES LEVEL 37 MG/DL (<150)
[2022-09-02 13:29] LABS: BILIRUBIN,TOTAL 0.8 MG/DL (0.3-1.2); HDL CHOLESTEROL 40.4 MG/DL (>40)
[2022-09-02 13:30] LABS: ALT/SGPT 43 U/L (7.0-40); CHOLESTEROL LEVEL 100 MG/DL (<200); CHOLESTEROL RISK RATIO 2.47 (<5); CREATININE FOR GFR 0.86 MG/DL (0.70-1.30); GLOMERULAR FILTRATION RATE > 60.0 (>56); LDL CHOLESTEROL 52.2 MG/DL (<100); NON-HDL-C 60 MG/DL; TOTAL PROTEIN 6.9 G/DL (5.7-8.2)
[2022-09-02 20:25] LABS: HEMOGLOBIN A1c 5.9 % (4.0-6.0)
== END ==
LOC: M LAB REF 11:17
PROVIDERS: ATTEND Family Medicine Addiction Medicine
DX: E11.9 Type 2 diabetes mellitus without complications (principal)

== ENCOUNTER → 2022-09-13 | Outpatient (CLI) | payer MEDICARE, MEDICAID | LOC: M SLEEP 20:00 | PROVIDERS: ATTEND Physician Assistant | DX: R40.0 Somnolence (principal) ==

== ENCOUNTER → 2023-01-31 | Outpatient (REF) | payer MEDICARE, MEDICAID ==
[2023-01-31 13:17] LABS: ALBUMIN 3.5 G/DL (3.2-5.2); ALKALINE PHOSPHATASE 122 U/L (46-116); ALT/SGPT 48 U/L (7.0-40); AST/SGOT 30 U/L (<34); BILIRUBIN,TOTAL 0.6 MG/DL (0.3-1.2); BLOOD UREA NITROGEN 19 MG/DL (9-23); CALCIUM LEVEL 8.7 MG/DL (8.5-10.1); CARBON DIOXIDE LEVEL 26 MMOL/L (20-31); CHLORIDE LEVEL 102 MMOL/L (98-107); CHOLESTEROL LEVEL 129 MG/DL (<200); CHOLESTEROL RISK RATIO 2.82 (<5); CREATININE FOR GFR 0.69 MG/DL (0.70-1.30); GLOMERULAR FILTRATION RATE > 60.0 (>56); GLUCOSE, FASTING 203 MG/DL (60-100); HDL CHOLESTEROL 45.7 MG/DL (>40); LDL CHOLESTEROL 69.7 MG/DL (<100); NON-HDL-C 83.3 MG/DL; POTASSIUM SERUM 4.3 MMOL/L (3.5-5.1); SODIUM LEVEL 134 MMOL/L (136-145); TOTAL PROTEIN 6.7 G/DL (5.7-8.2); TRIGLYCERIDES LEVEL 68 MG/DL (<150)
[2023-01-31 13:19] LABS: THYROID STIMULATING HORMONE 2.043 uIU/ML (0.55-4.78)
[2023-01-31 13:27] LABS: HEMOGLOBIN A1c 8.3 % (4.0-6.0)
== END ==
LOC: M LAB REF 12:15
PROVIDERS: ATTEND Family Medicine Addiction Medicine
DX: E11.9 Type 2 diabetes mellitus without complications (principal)

== ENCOUNTER → 2023-02-26 | Outpatient (CLI) | payer MEDICARE, MEDICAID ==
[~2023-02-26] MED LIST changes: -MELA2.5C2 PO; +MELA2.5T11 PO
== END ==
LOC: M SLEEP 20:00
PROVIDERS: ATTEND Physician Assistant
DX: G47.33 Obstructive sleep apnea (adult) (pediatric) (principal)

== ENCOUNTER 2023-03-19 22:00 | Emergency (ER) | payer MEDICARE, MEDICAID ==
[~2023-03-19] VITALS: Ht 177.8 cm; Wt 115.0 kg
[2023-03-19 22:00] VITALS: BP 160/77; TEMP 97.6; O2SAT 97
== END 2023-03-20 00:56 | disposition left against medical advice (07) ==
LOC: M ED 22:00
DX: Z53.21 Procedure and treatment not carried out due to patient leaving prior to being seen by health care provider (principal)

== ENCOUNTER 2023-06-14 12:28 | Emergency (ER) | payer MEDICARE, MEDICAID ==
[~2023-06-14] VITALS: Ht 177.8 cm; Wt 112.3 kg
[~2023-06-14 12:28] MED LIST changes: +MECL-209 PO; -MECL1TAB31 PO
[2023-06-14 14:30] LABS: BASO % 0.3 % (0.0-1.0); EOS % 0.7 % (0.0-3.0); HEMATOCRIT 44.3 % (42.0-52.0); HEMOGLOBIN 15.2 g/dl (13.5-17.5); LYMPH # 1.1 10^3/uL (1.5-5.0); LYMPH % 18.5 % (24.0-44.0); MEAN CORPUSCULAR HEMOGLOBIN 32.7 pg (27.0-33.0); MEAN CORPUSCULAR HGB CONC 34.3 g/dl (32.0-36.5); MEAN CORPUSCULAR VOLUME 95.3 fl (80.0-96.0); MONO # 0.5 10^3/uL (0.0-0.8); MONO % 9.1 % (2.0-8.0); NEUTROPHILS # 4.1 10^3/uL (1.5-8.5); NEUTROPHILS % 71.1 % (36.0-66.0); PLATELET COUNT, AUTOMATED 188 10^3/uL (150-450); RED BLOOD COUNT 4.65 10^6/uL (4.30-6.10); WHITE BLOOD COUNT 5.8 10^3/uL (4.0-10.0)
[2023-06-14 14:45] LABS: ERYTHROCYTE SEDIMENTATION RATE 15 mm/hr (0-20)
[2023-06-14] MEDS ORDERED: PROPARACAINE 0.5% OPHTH SOL 15ML OD ONE (15:00)
[2023-06-14] MEDS ORDERED: FLUORESCEIN OPHTH 1MG STRIP OD ONE (15:00)
[2023-06-14] MEDS ORDERED: KETOROLAC 30 MG/ML 1ML VIAL IV ONE (15:00)
[2023-06-14] MEDS ORDERED: NS 1,000 ML IV ONE (15:00)
[2023-06-14 15:03] LABS: INR 0.98; PROTHROMBIN TIME 12.7 SECONDS (12.5-14.5)
[2023-06-14 15:04] LABS: PARTIAL THROMBOPLASTIN TIME 26.4 SECONDS (24.8-34.2)
[2023-06-14 15:05] LABS: RSV AMPLIFICATION NEGATIVE (NEGATIVE)
[2023-06-14 15:06] LABS: ALBUMIN 3.8 G/DL (3.2-5.2); ALKALINE PHOSPHATASE 119 U/L (46-116); ALT/SGPT 30 U/L (7.0-40); AST/SGOT 15 U/L (<34); BILIRUBIN,DIRECT 0.5 MG/DL (<0.4); BILIRUBIN,TOTAL 0.9 MG/DL (0.3-1.2); BLOOD UREA NITROGEN 16 MG/DL (9-23); CALCIUM LEVEL 9.1 MG/DL (8.5-10.1); CARBON DIOXIDE LEVEL 28 MMOL/L (20-31); CHLORIDE LEVEL 103 MMOL/L (98-107); CREATININE FOR GFR 0.83 MG/DL (0.70-1.30); GLOMERULAR FILTRATION RATE > 60.0 (>56); GLUCOSE, FASTING 201 MG/DL (60-100); POTASSIUM SERUM 4.1 MMOL/L (3.5-5.1); SODIUM LEVEL 138 MMOL/L (136-145); TOTAL PROTEIN 7.2 G/DL (5.7-8.2)
[2023-06-14] MEDS ORDERED: NS 2,370 ML in IV 1 EA IV ONE (15:50)
[2023-06-14] MEDS ORDERED: ISOVUE-370 76% 100ML VIAL As Ordered ONE (16:00)
[2023-06-14] MEDS ORDERED: dexAMETHasone 20MG/5ML VIAL IV ONE (16:50)
[2023-06-14] MEDS ORDERED: DALBAVANCIN 1,500 MG in D5W 250 ML IV ONE (19:00)
[2023-06-14] MEDS ORDERED: VALA1TAB5 PO (19:59)
[2023-06-14 20:16] VITALS: BP 162/86; TEMP 100.1; O2SAT 97
== END 2023-06-14 20:59 | disposition home or self-care (01) ==
LOC: M ED 12:28
DX: L03.211 Cellulitis of face (principal); E11.9 Type 2 diabetes mellitus without complications; I10 Essential (primary) hypertension; E78.5 Hyperlipidemia, unspecified; R51.9 Headache, unspecified; Z91.030 Bee allergy status; Z91.013 Allergy to seafood; Z79.899 Other long term (current) drug therapy
CPT/HCPCS: 70487; 80048; 80076; 83605; 85025; 85610; 85652; 85730; 86140; 87040; 87631; 96365; 96366; 96367; 96375; 99284; J0875; J1100; J1885; Q9967

== ENCOUNTER 2023-07-09 13:52 | Emergency (ER) | payer MEDICARE, MEDICAID ==
[~2023-07-09] VITALS: Ht 177.8 cm; Wt 107.8 kg
[~2023-07-09 13:52] MED LIST changes: +ATOR40TA75 PO; +CEFD300CAP PO; +DOXY100T PO; +PROBCAP14 PO; +VALA1TAB5 PO
[2023-07-09 15:14] LABS: BASO # 0.1 10^3/uL (0.0-0.2); BASO % 1.1 % (0.0-1.0); EOS # 0.2 10^3/uL (0.0-0.5); EOS % 2.8 % (0.0-3.0); HEMATOCRIT 38.3 % (42.0-52.0); HEMOGLOBIN 13.1 g/dl (13.5-17.5); LYMPH # 1.7 10^3/uL (1.5-5.0); MEAN CORPUSCULAR HEMOGLOBIN 33.2 pg (27.0-33.0); MEAN CORPUSCULAR HGB CONC 34.2 g/dl (32.0-36.5); MONO # 0.6 10^3/uL (0.0-0.8); MONO % 9.6 % (2.0-8.0); NEUTROPHILS # 3.2 10^3/uL (1.5-8.5); NEUTROPHILS % 56.3 % (36.0-66.0); PLATELET COUNT, AUTOMATED 213 10^3/uL (150-450); RED BLOOD COUNT 3.95 10^6/uL (4.30-6.10); WHITE BLOOD COUNT 5.7 10^3/uL (4.0-10.0)
[2023-07-09 15:25] LABS: ERYTHROCYTE SEDIMENTATION RATE 3 mm/hr (0-20)
[2023-07-09 15:54] LABS: C REACTIVE PROTEIN QUANTITATIV < 0.40 MG/DL (<1.0)
[2023-07-09 15:55] LABS: BLOOD UREA NITROGEN 13 MG/DL (9-23); CALCIUM LEVEL 8.3 MG/DL (8.5-10.1); CARBON DIOXIDE LEVEL 26 MMOL/L (20-31); CHLORIDE LEVEL 111 MMOL/L (98-107); CREATININE FOR GFR 0.74 MG/DL (0.70-1.30); GLOMERULAR FILTRATION RATE > 60.0 (>56); GLUCOSE, FASTING 122 MG/DL (60-100); POTASSIUM SERUM 4.2 MMOL/L (3.5-5.1); SODIUM LEVEL 143 MMOL/L (136-145)
[2023-07-09] MEDS ORDERED: ISOVUE-370 76% 100ML VIAL As Ordered ONE (17:43)
[2023-07-09] MEDS ORDERED: FLUORESCEIN OPHTH 1MG STRIP OD ONE (17:45)
[2023-07-09] MEDS ORDERED: TETRACAINE 0.5% OPHTH SOLN 4ML OD ONE (17:45)
[2023-07-09] MEDS ORDERED: CIPR0.3S37 OD (19:32)
[2023-07-09 19:41] VITALS: BP 148/85; TEMP 97.9; O2SAT 98
== END 2023-07-09 20:00 | disposition home or self-care (01) ==
LOC: M ED 13:52
DX: H10.31 Unspecified acute conjunctivitis, right eye (principal); S05.01XA Injury of conjunctiva and corneal abrasion without foreign body, right eye, initial encounter; Z77.098 Contact with and (suspected) exposure to other hazardous, chiefly nonmedicinal, chemicals; E11.9 Type 2 diabetes mellitus without complications; I10 Essential (primary) hypertension; E78.5 Hyperlipidemia, unspecified; F43.10 Post-traumatic stress disorder, unspecified; F42.9 Obsessive-compulsive disorder, unspecified; F60.2 Antisocial personality disorder; F31.9 Bipolar disorder, unspecified; F41.9 Anxiety disorder, unspecified; F32.A Depression, unspecified; Z79.899 Other long term (current) drug therapy; Z91.030 Bee allergy status; Z91.013 Allergy to seafood
CPT/HCPCS: 70487; 80048; 85025; 85652; 86140; 87040; 99283; Q9967

== ENCOUNTER 2023-07-21 03:37 | Emergency (ER) | payer MEDICARE, MEDICAID ==
[~2023-07-21] VITALS: Ht 177.8 cm; Wt 108.6 kg
[~2023-07-21 03:37] MED LIST changes: +CIPR0.3S37 OD
[2023-07-21 03:38] VITALS: BP 144/97; TEMP 99.2; O2SAT 96
[2023-07-21] MEDS ORDERED: TETRACAINE 0.5% OPHTH SOLN 4ML OD ONE (04:30)
[2023-07-21] MEDS ORDERED: FLUORESCEIN OPHTH 1MG STRIP OD ONE (04:30)
[2023-07-21 04:46] LABS: BASO % 0.6 % (0.0-1.0); EOS # 0.2 10^3/uL (0.0-0.5); EOS % 2.9 % (0.0-3.0); HEMATOCRIT 38.8 % (42.0-52.0); HEMOGLOBIN 13.7 g/dl (13.5-17.5); LYMPH # 2.7 10^3/uL (1.5-5.0); LYMPH % 37.3 % (24.0-44.0); MEAN CORPUSCULAR HEMOGLOBIN 33.7 pg (27.0-33.0); MEAN CORPUSCULAR HGB CONC 35.3 g/dl (32.0-36.5); MEAN CORPUSCULAR VOLUME 95.6 fl (80.0-96.0); MONO # 0.6 10^3/uL (0.0-0.8); MONO % 8.8 % (2.0-8.0); NEUTROPHILS # 3.6 10^3/uL (1.5-8.5); NEUTROPHILS % 50.1 % (36.0-66.0); PLATELET COUNT, AUTOMATED 252 10^3/uL (150-450); RED BLOOD COUNT 4.06 10^6/uL (4.30-6.10); WHITE BLOOD COUNT 7.2 10^3/uL (4.0-10.0)
[2023-07-21] MEDS ORDERED: ERYTHROMYCIN OPHTH OINT OD ONE (05:00)
[2023-07-21] MEDS ORDERED: ERYTOIN8 OD (05:12)
== END 2023-07-21 05:28 | disposition home or self-care (01) ==
LOC: M ED 03:37
DX: H10.31 Unspecified acute conjunctivitis, right eye (principal); H16.001 Unspecified corneal ulcer, right eye; E11.9 Type 2 diabetes mellitus without complications; I10 Essential (primary) hypertension; E78.5 Hyperlipidemia, unspecified; M19.90 Unspecified osteoarthritis, unspecified site; Z91.013 Allergy to seafood; Z91.030 Bee allergy status; Z79.899 Other long term (current) drug therapy

== ENCOUNTER → 2023-08-06 | Outpatient (REF) | payer MEDICARE, MEDICAID ==
[2023-08-06 14:54] LABS: CREATININE, URINE 152.2 MG/DL
[2023-08-06 14:55] LABS: MALB URINE SIEMENS < 3.0 MG/L; MAU/CREAT RATIO 1.9 MCG/MG (0.0-30.0)
== END ==
LOC: M LAB REF 12:20
PROVIDERS: ATTEND Family Medicine Addiction Medicine
DX: E11.9 Type 2 diabetes mellitus without complications (principal); E83.42 Hypomagnesemia

== ENCOUNTER → 2023-10-07 | Outpatient (REF) | payer MEDICARE, MEDICAID ==
[2023-10-07 14:23] LABS: ALBUMIN 3.7 G/DL (3.2-5.2); ALKALINE PHOSPHATASE 105 U/L (46-116); ALT/SGPT 24 U/L (7.0-40); AST/SGOT 16 U/L (<34); BILIRUBIN,TOTAL 0.5 MG/DL (0.3-1.2); BLOOD UREA NITROGEN 7 MG/DL (9-23); CALCIUM LEVEL 8.9 MG/DL (8.5-10.1); CARBON DIOXIDE LEVEL 23 MMOL/L (20-31); CHLORIDE LEVEL 109 MMOL/L (98-107); CHOLESTEROL LEVEL 90 MG/DL (<200); CHOLESTEROL RISK RATIO 2.15 (<5); CREATININE FOR GFR 0.78 MG/DL (0.70-1.30); GLOMERULAR FILTRATION RATE > 60.0 (>56); GLUCOSE, FASTING 131 MG/DL (60-100); HDL CHOLESTEROL 41.7 MG/DL (>40); LDL CHOLESTEROL 32.7 MG/DL (<100); NON-HDL-C 48.3 MG/DL; POTASSIUM SERUM 3.7 MMOL/L (3.5-5.1); SODIUM LEVEL 138 MMOL/L (136-145); THYROID STIMULATING HORMONE 2.809 uIU/ML (0.55-4.78); TOTAL PROTEIN 6.3 G/DL (5.7-8.2); TRIGLYCERIDES LEVEL 78 MG/DL (<150)
== END ==
LOC: M LAB REF 12:49
PROVIDERS: ATTEND Family Medicine Addiction Medicine
DX: E11.9 Type 2 diabetes mellitus without complications (principal); E83.42 Hypomagnesemia

== ENCOUNTER 2023-11-07 00:40 | Emergency (ER) | payer MEDICARE, MEDICAID ==
[~2023-11-07] VITALS: Ht 177.8 cm; Wt 105.6 kg
[2023-11-07 00:43] VITALS: BP 133/82; TEMP 98.6; O2SAT 97
[2023-11-07] MEDS ORDERED: PROPARACAINE 0.5% OPHTH SOL 15ML OD ONE (01:55)
[2023-11-07] MEDS ORDERED: FLUORESCEIN OPHTH 1MG STRIP OD ONE (01:55)
== END 2023-11-07 02:49 | disposition home or self-care (01) ==
LOC: M ED 00:40
DX: H57.11 Ocular pain, right eye (principal); E11.9 Type 2 diabetes mellitus without complications; F41.9 Anxiety disorder, unspecified; I10 Essential (primary) hypertension; F31.9 Bipolar disorder, unspecified; F43.10 Post-traumatic stress disorder, unspecified; F42.9 Obsessive-compulsive disorder, unspecified; Z72.811 Adult antisocial behavior; Z79.899 Other long term (current) drug therapy; Z91.013 Allergy to seafood; Z91.030 Bee allergy status

== ENCOUNTER 2023-12-22 14:31 | Emergency (ER) | payer MEDICARE, MEDICAID ==
[~2023-12-22] VITALS: Ht 177.8 cm; Wt 115.2 kg
[2023-12-22 19:23] VITALS: BP 146/91; TEMP 97.8; O2SAT 100
[2023-12-22] MEDS: NS 1,000 ML IV ONE (21:00)
[2023-12-22] MEDS ORDERED: ISOVUE-370 76% 100ML VIAL As Ordered ONE (21:13)
[2023-12-22 21:22] LABS: BASO # 0.1 10^3/uL (0.0-0.2); BASO % 0.5 % (0.0-1.0); EOS # 0.1 10^3/uL (0.0-0.5); EOS % 0.9 % (0.0-3.0); HEMATOCRIT 43.3 % (42.0-52.0); HEMOGLOBIN 15.1 g/dl (13.5-17.5); LYMPH # 1.9 10^3/uL (1.5-5.0); LYMPH % 17.2 % (24.0-44.0); MEAN CORPUSCULAR HEMOGLOBIN 33.3 pg (27.0-33.0); MEAN CORPUSCULAR HGB CONC 34.9 g/dl (32.0-36.5); MEAN CORPUSCULAR VOLUME 95.4 fl (80.0-96.0); MONO % 8.8 % (2.0-8.0); NEUTROPHILS # 7.9 10^3/uL (1.5-8.5); PLATELET COUNT, AUTOMATED 232 10^3/uL (150-450); RED BLOOD COUNT 4.54 10^6/uL (4.30-6.10)
[2023-12-22 21:41] LABS: ALBUMIN 4.1 G/DL (3.2-5.2); BILIRUBIN,DIRECT 0.3 MG/DL (<0.4); TOTAL PROTEIN 7.1 G/DL (5.7-8.2)
== END 2023-12-22 22:39 | disposition home or self-care (01) ==
LOC: M ED 14:31
DX: M54.9 Dorsalgia, unspecified (principal); R10.813 Right lower quadrant abdominal tenderness; R10.814 Left lower quadrant abdominal tenderness; V13.4XXA Pedal cycle driver injured in collision with car, pick-up truck or van in traffic accident, initial encounter; Y92.410 Unspecified street and highway as the place of occurrence of the external cause; M43.17 Spondylolisthesis, lumbosacral region; I10 Essential (primary) hypertension; E11.9 Type 2 diabetes mellitus without complications; Z91.013 Allergy to seafood; Z91.030 Bee allergy status; Z79.899 Other long term (current) drug therapy; Z79.85 Long-term (current) use of injectable non-insulin antidiabetic drugs
CPT/HCPCS: 72128; 74177; 80047; 80076; 83690; 85025; 99284; Q9967

== ENCOUNTER → 2024-02-09 | Outpatient (REF) | payer MEDICARE, MEDICAID ==
[2024-02-09 14:10] LABS: ALBUMIN 3.3 G/DL (3.2-5.2); ALKALINE PHOSPHATASE 247 U/L (46-116); ALT/SGPT 23 U/L (7.0-40); AST/SGOT 12 U/L (<34); BILIRUBIN,TOTAL 0.2 MG/DL (0.3-1.2); BLOOD UREA NITROGEN 29 MG/DL (9-23); CALCIUM LEVEL 8.5 MG/DL (8.5-10.1); CARBON DIOXIDE LEVEL 22 MMOL/L (20-31); CHLORIDE LEVEL 109 MMOL/L (98-107); CHOLESTEROL LEVEL 134 MG/DL (<200); CHOLESTEROL RISK RATIO 3.19 (<5); CREATININE FOR GFR 0.74 MG/DL (0.70-1.30); GLOMERULAR FILTRATION RATE > 60.0 (>56); GLUCOSE, FASTING 127 MG/DL (60-100); SODIUM LEVEL 140 MMOL/L (136-145); THYROID STIMULATING HORMONE 2.201 uIU/ML (0.55-4.78); TOTAL PROTEIN 6.4 G/DL (5.7-8.2); TRIGLYCERIDES LEVEL 195 MG/DL (<150)
[2024-02-09 14:59] LABS: HEMOGLOBIN A1c 5.9 % (4.0-6.0)
== END ==
LOC: M LAB REF 12:53
PROVIDERS: ATTEND Family Medicine Addiction Medicine
DX: E11.9 Type 2 diabetes mellitus without complications (principal)

== ENCOUNTER 2024-02-14 23:05 | Emergency (ER) | payer MEDICARE, MEDICAID ==
[~2024-02-14] VITALS: Ht 177.8 cm; Wt 113.9 kg
[2024-02-14 23:07] VITALS: TEMP 96.8
[2024-02-15 03:16] VITALS: BP 159/99; O2SAT 98
[2024-02-15] MEDS ORDERED: NAPR-837 PO (03:18)
[2024-02-15] MEDS ORDERED: CLEO300C2 PO (03:18)
[2024-02-15] MEDS: NAPROXEN 250 MG TAB PO ONE (03:27)
[2024-02-15] MEDS: CLINDAMYCIN 150MG CAPSULE PO ONE (03:28)
== END 2024-02-15 03:33 | disposition home or self-care (01) ==
LOC: M ED 23:05
DX: M25.561 Pain in right knee (principal); K08.89 Other specified disorders of teeth and supporting structures; I10 Essential (primary) hypertension; E78.5 Hyperlipidemia, unspecified; F10.10 Alcohol abuse, uncomplicated; Z91.013 Allergy to seafood; Z91.030 Bee allergy status; Z79.2 Long term (current) use of antibiotics; Z79.899 Other long term (current) drug therapy

== ENCOUNTER 2024-06-02 03:08 | Emergency (ER) | payer MEDICARE, MEDICAID ==
[~2024-06-02] VITALS: Ht 177.8 cm; Wt 107.0 kg
[~2024-06-02 03:08] MED LIST changes: +CLEO300C2 PO; +NAPR-837 PO
[2024-06-02] MEDS: HYDROCORTISONE 1% CREAM 30GM TOP ONE (06:27)
[2024-06-02] MEDS ORDERED: HYDR1CRE30 TOP (06:58)
[2024-06-02] MEDS ORDERED: BEPR1.5D2 OP (06:58)
[2024-06-02 07:08] VITALS: BP 125/70; TEMP 97.1; O2SAT 97
== END 2024-06-02 07:12 | disposition home or self-care (01) ==
LOC: M ED 03:08
DX: T63.481A Toxic effect of venom of other arthropod, accidental (unintentional), initial encounter (principal); E11.9 Type 2 diabetes mellitus without complications; I10 Essential (primary) hypertension; Z91.030 Bee allergy status; Z91.013 Allergy to seafood; Z79.899 Other long term (current) drug therapy

== ENCOUNTER → 2024-10-12 | Outpatient (REF) | payer MEDICARE, MEDICAID ==
[~2024-10-12] MED LIST changes: +BEPR1.5D2 OP; +HYDR1CRE30 TOP
[2024-10-12 14:21] LABS: ALBUMIN 3.8 G/DL (3.2-5.2); ALKALINE PHOSPHATASE 215 U/L (40-129); ALT/SGPT 34 U/L (7.0-40); AST/SGOT 18 U/L (<34); BILIRUBIN,TOTAL 0.5 MG/DL (0.3-1.2); BLOOD UREA NITROGEN 20 MG/DL (9-23); CALCIUM LEVEL 9.3 MG/DL (8.5-10.1); CARBON DIOXIDE LEVEL 27 MMOL/L (20-31); CHLORIDE LEVEL 107 MMOL/L (98-107); CHOLESTEROL LEVEL 128 MG/DL (<200); CHOLESTEROL RISK RATIO 2.69 (<5); CREATININE FOR GFR 0.81 MG/DL (0.70-1.30); GLOMERULAR FILTRATION RATE > 60.0 (>56); GLUCOSE, FASTING 231 MG/DL (60-100); HDL CHOLESTEROL 47.5 MG/DL (>40); LDL CHOLESTEROL 61.3 MG/DL (<100); NON-HDL-C 80.5 MG/DL; POTASSIUM SERUM 4.2 MMOL/L (3.5-5.1); SODIUM LEVEL 139 MMOL/L (136-145); THYROID STIMULATING HORMONE 4.027 uIU/ML (0.55-4.78); TOTAL PROTEIN 7.1 G/DL (5.7-8.2); TRIGLYCERIDES LEVEL 96 MG/DL (<150)
[2024-10-12 14:34] LABS: HEMOGLOBIN A1c 7.5 % (4.0-6.0)
== END ==
LOC: M LAB REF 12:15
PROVIDERS: ATTEND Family Medicine Addiction Medicine
DX: E11.9 Type 2 diabetes mellitus without complications (principal)

== ENCOUNTER 2024-12-20 08:37 | Day surgery (SDC) | payer MEDICARE, MEDICAID ==
[~2024-12-20] VITALS: Ht 177.8 cm; Wt 120.2 kg
[~2024-12-20 08:37] MED LIST changes: +ACETAMINOPHEN 1000MG/100ML IV BAG As Ordered ONE; +KETOROLAC 30 MG/ML 1ML VIAL As Ordered ONE; +LIDOCAINE 2% 100MG/5ML SDV (FOR ANES.) As Ordered ONE; +MIDAZOLAM INJ 2MG/2ML VIAL As Ordered ONE; +ONDANSETRON 4MG 2ML VIAL As Ordered ONE; +ROCURONIUM BROMIDE 50MG/5ML VIAL As Ordered ONE; +SUGAMMADEX SODIUM 500 MG/5 ML VIAL (BRIDION) As Ordered ONE; +THERTAB52 PO; +VITA100024 PO; +VITA100093 PO; +ceFAZolin SOD 2 GM IV ONCE IV ONE; +fentaNYL 100 MCG/2 ML INJECTION As Ordered ONE; +propofoL 200 MG/20 ML VIAL As Ordered ONE
[2024-12-20] MEDS ORDERED: LR 1,000 ML IV SCH (09:05)
[2024-12-20] MEDS ORDERED: GLUCOSE 4 GM CHEW PO PRN (09:30)
[2024-12-20] MEDS ORDERED: DEXTROSE 50% 50ML SYRINGE IV PRN (09:30)
[2024-12-20] MEDS ORDERED: GLUCAGON INJ 1MG VIAL SC PRN (09:30)
[2024-12-20] MEDS: CelecoXIB 400 MG CAP PO ONE (09:41)
[2024-12-20] MEDS: INSULIN LISPRO (NovoLOG) PER UNIT SC PRN ×3 (09:41→18:27)
[2024-12-20] MEDS: LR 1,000 ML IV SCH (10:11)
[2024-12-20] MEDS: SCOPOLAMINE 1MG TRANSDERMAL PATCH TOP ONE (10:11)
[2024-12-20] MEDS: ceFAZolin SOD 3 GM in DEXTROSE 5% (D5W) MINI-BAG PLU 1... IV ONE (13:00)
[2024-12-20] MEDS ORDERED: HYDROmorphone HCL 2MG/ML 1ML VIAL As Ordered ONE (13:38)
[2024-12-20] MEDS ORDERED: ONDANSETRON 4MG 2ML VIAL IV PRN (16:40)
[2024-12-20] MEDS ORDERED: traMADol 50 MG TAB PO ONE (16:40)
[2024-12-20] MEDS: LIDOCAINE 1% SDV 30ML VIAL As Ordered ONE (16:40)
[2024-12-20] MEDS ORDERED: fentaNYL 100 MCG/2 ML INJECTION IV PRN (16:40)
[2024-12-20] MEDS ORDERED: HYDROMORPHONE HCL 0.5 MG/ 0.5 ML SYRINGE IV PRN (16:40)
[2024-12-20 19:35] VITALS: BP 146/86; TEMP 97.5; O2SAT 95
== END 2024-12-20 19:40 | disposition home or self-care (01) ==
LOC: M SDC 08:37
PROVIDERS: ATTEND Surgery
DX: K40.01 Bilateral inguinal hernia, with obstruction, without gangrene, recurrent (principal); D17.6 Benign lipomatous neoplasm of spermatic cord; E11.9 Type 2 diabetes mellitus without complications; G47.30 Sleep apnea, unspecified; Z99.89 Dependence on other enabling machines and devices; Z68.38 Body mass index [BMI] 38.0-38.9, adult; Z91.030 Bee allergy status; Z91.013 Allergy to seafood; Z79.899 Other long term (current) drug therapy
CPT/HCPCS: 49521; 64425; 93005; C1781; J0131; J0665; J0690; J1100; J1171; J1815; J1885; J2250; J2405; J3010; S2900

== ENCOUNTER 2024-12-22 22:10 | Emergency (ER) | payer MEDICARE, MEDICAID ==
[~2024-12-22] VITALS: Ht 177.8 cm; Wt 124.2 kg
[~2024-12-22 22:10] MED LIST changes: -ACETAMINOPHEN 1000MG/100ML IV BAG As Ordered ONE; -KETOROLAC 30 MG/ML 1ML VIAL As Ordered ONE; -LIDOCAINE 2% 100MG/5ML SDV (FOR ANES.) As Ordered ONE; -MIDAZOLAM INJ 2MG/2ML VIAL As Ordered ONE; -ONDANSETRON 4MG 2ML VIAL As Ordered ONE; -ROCURONIUM BROMIDE 50MG/5ML VIAL As Ordered ONE; -SUGAMMADEX SODIUM 500 MG/5 ML VIAL (BRIDION) As Ordered ONE; -ceFAZolin SOD 2 GM IV ONCE IV ONE; -fentaNYL 100 MCG/2 ML INJECTION As Ordered ONE; -propofoL 200 MG/20 ML VIAL As Ordered ONE
[2024-12-22 22:11] VITALS: BP 170/92; TEMP 96.2; O2SAT 96
[2024-12-22] MEDS ORDERED: HYDR-3713 (22:16)
== END 2024-12-23 03:37 | disposition left against medical advice (07) ==
LOC: M ED 22:10
DX: Z53.21 Procedure and treatment not carried out due to patient leaving prior to being seen by health care provider (principal)

== ENCOUNTER → 2025-04-13 | Outpatient (REF) | payer MEDICARE, MEDICAID ==
[~2025-04-13] MED LIST changes: +HYDR-3713
[2025-04-13 20:05] LABS: ALT/SGPT 41 U/L (7.0-40); AST/SGOT 22 U/L (<34); CALCIUM LEVEL 9.1 MG/DL (8.5-10.1); CARBON DIOXIDE LEVEL 26 MMOL/L (20-31); CHLORIDE LEVEL 102 MMOL/L (98-107); CHOLESTEROL LEVEL 99 MG/DL (<200); CHOLESTEROL RISK RATIO 2.45 (<5); CREATININE FOR GFR 0.76 MG/DL (0.70-1.30); GLOMERULAR FILTRATION RATE > 90.0 (>56); LDL CHOLESTEROL 46.7 MG/DL (<100); NON-HDL-C 58.7 MG/DL; POTASSIUM SERUM 4.7 MMOL/L (3.5-5.1); SODIUM LEVEL 138 MMOL/L (136-145); TRIGLYCERIDES LEVEL 60 MG/DL (<150)
[2025-04-13 20:12] LABS: ESTIMATED AVERAGE GLUCOSE 200.0 MG/DL (60-110)
== END ==
LOC: M LAB REF 18:02
PROVIDERS: ATTEND Family Medicine Addiction Medicine
DX: E11.9 Type 2 diabetes mellitus without complications (principal)

== ENCOUNTER 2025-05-29 21:56 | Emergency (ER) | payer MEDICARE, MEDICAID ==
[~2025-05-29] VITALS: Ht 177.8 cm; Wt 118.2 kg
[~2025-05-29 21:56] MED LIST changes: -VITA100024 PO; +VITA100051 PO
[2025-05-30 04:40] VITALS: BP 135/80; TEMP 96.7; O2SAT 96
[2025-05-30] MEDS: NAPROXEN 250 MG TAB PO ONE (04:40)
== END 2025-05-30 04:47 | disposition home or self-care (01) ==
LOC: M ED 21:56
DX: M25.562 Pain in left knee (principal); E11.9 Type 2 diabetes mellitus without complications; R41.83 Borderline intellectual functioning; Z91.013 Allergy to seafood; Z91.030 Bee allergy status; Z79.1 Long term (current) use of non-steroidal anti-inflammatories (NSAID); Z79.02 Long term (current) use of antithrombotics/antiplatelets; Z79.899 Other long term (current) drug therapy

== ENCOUNTER → 2025-06-01 | Outpatient (REF) | payer MEDICARE, MEDICAID ==
[2025-06-01 14:41] LABS: ESTIMATED AVERAGE GLUCOSE 200.0 MG/DL (60-110)
[2025-06-01 15:01] LABS: ALT/SGPT 42 U/L (7.0-40); AST/SGOT 25 U/L (<34); CALCIUM LEVEL 9.1 MG/DL (8.5-10.1); CARBON DIOXIDE LEVEL 24 MMOL/L (20-31); CHLORIDE LEVEL 103 MMOL/L (98-107); CHOLESTEROL LEVEL 106 MG/DL (<200); CHOLESTEROL RISK RATIO 2.39 (<5); CREATININE FOR GFR 0.88 MG/DL (0.70-1.30); GLOMERULAR FILTRATION RATE > 90.0 (>56); LDL CHOLESTEROL 48.6 MG/DL (<100); NON-HDL-C 61.8 MG/DL; POTASSIUM SERUM 4.2 MMOL/L (3.5-5.1); SODIUM LEVEL 139 MMOL/L (136-145); TRIGLYCERIDES LEVEL 66 MG/DL (<150)
== END ==
LOC: M LAB REF 12:16
PROVIDERS: ATTEND Family Medicine Addiction Medicine
DX: E11.9 Type 2 diabetes mellitus without complications (principal)

== ENCOUNTER → 2025-06-24 | Outpatient (REF) | payer MEDICARE, MEDICAID ==
[2025-06-24 14:01] LABS: ALT/SGPT 41 U/L (7.0-40); AST/SGOT 20 U/L (<34); CALCIUM LEVEL 8.9 MG/DL (8.5-10.1); CARBON DIOXIDE LEVEL 26 MMOL/L (20-31); CHLORIDE LEVEL 105 MMOL/L (98-107); CHOLESTEROL LEVEL 114 MG/DL (<200); CHOLESTEROL RISK RATIO 2.89 (<5); CREATININE FOR GFR 0.79 MG/DL (0.70-1.30); GLOMERULAR FILTRATION RATE > 90.0 (>56); LDL CHOLESTEROL 54.0 MG/DL (<100); NON-HDL-C 74.6 MG/DL; POTASSIUM SERUM 4.2 MMOL/L (3.5-5.1); SODIUM LEVEL 138 MMOL/L (136-145); TRIGLYCERIDES LEVEL 103 MG/DL (<150)
[2025-06-24 14:21] LABS: ESTIMATED AVERAGE GLUCOSE 206.0 MG/DL (60-110)
== END ==
LOC: M LAB REF 13:00
PROVIDERS: ATTEND Family Medicine Addiction Medicine
DX: E11.9 Type 2 diabetes mellitus without complications (principal)

== ENCOUNTER → 2025-08-06 | Outpatient (CLI) | payer MEDICARE, MEDICAID | LOC: M SLEEP 20:00 | PROVIDERS: ATTEND Physician Assistant | DX: G47.33 Obstructive sleep apnea (adult) (pediatric) (principal) ==

== ENCOUNTER → 2025-09-16 | Outpatient (REF) | payer MEDICARE, MEDICAID ==
[2025-09-16 13:07] LABS: ESTIMATED AVERAGE GLUCOSE 180.0 MG/DL (60-110)
[2025-09-16 13:30] LABS: ALT/SGPT 41 U/L (7.0-40); AST/SGOT 21 U/L (<34); CALCIUM LEVEL 8.8 MG/DL (8.5-10.1); CARBON DIOXIDE LEVEL 22 MMOL/L (20-31); CHLORIDE LEVEL 106 MMOL/L (98-107); CHOLESTEROL LEVEL 109 MG/DL (<200); CHOLESTEROL RISK RATIO 2.48 (<5); CREATININE FOR GFR 0.75 MG/DL (0.70-1.30); GLOMERULAR FILTRATION RATE > 90.0 (>56); LDL CHOLESTEROL 43.7 MG/DL (<100); NON-HDL-C 65.1 MG/DL; POTASSIUM SERUM 4.1 MMOL/L (3.5-5.1); SODIUM LEVEL 139 MMOL/L (136-145); TRIGLYCERIDES LEVEL 107 MG/DL (<150)
== END ==
LOC: M LAB REF 12:10
PROVIDERS: ATTEND Family Medicine Addiction Medicine
DX: E11.9 Type 2 diabetes mellitus without complications (principal)